=== PATIENT | male | born 1935 | race Caucasian/White ===

== ENCOUNTER 2018-01-08 15:52 | Emergency (ER) | payer OTHER, MEDICARE ==
[~2018-01-08] VITALS: Wt 96.2 kg
== END 2018-01-08 17:40 | disposition home or self-care (01) ==
LOC: ED 15:52
DX: M25.561 Pain in right knee (principal); M25.551 Pain in right hip; Z88.0 Allergy status to penicillin

== ENCOUNTER 2023-01-27 16:40 | Inpatient (IN) | payer OTHER ==
[~2023-01-27] VITALS: Ht 177.8 cm; Wt 87.3 kg
[2023-01-27 16:53] VITALS: BP 171/85
[2023-01-27 17:24] LABS: BASO % 0.5 % (0.0-1.0); EOS # 0.1 10*3/uL (0.0-0.4); EOS % 1.2 % (1.0-4.0); LYMPH # 1.6 10*3/uL (1.3-4.4); LYMPH % 24.6 % (27.0-41.0); MEAN CELL VOLUME 95.5 fl (80.0-94.0); MEAN CORPUSCULAR HGB 31.8 pg (27.0-31.0); MEAN CORPUSCULAR HGB CONC 33.3 g/dl (33.0-37.0); MONO # 0.5 10*3/uL (0.1-1.0); MONO % 8.4 % (3.0-9.0); NEUT # 4.2 10*3/uL (2.3-7.9); PLATELET COUNT AUTOMATED 146 10*3/uL (130-400); RED CELL DISTRI WIDTH 13.5 % (0-14.5); WHITE BLOOD COUNT 6.4 10*3/uL (4.8-10.8)
[2023-01-27 17:26] LABS: VENOUS PH 7.513 (7.37-7.45)
[2023-01-27 17:30] VITALS: BP 141/60
[2023-01-27 17:34] LABS: ACT PARTIAL THROMBO TIME 26.4 SECONDS (20.0-32.1); INTERNATIONAL NORM RATIO 1.1 (2.0-3.5)
[2023-01-27 17:38] LABS: BILIRUBIN Negative (Negative); BLOOD Negative (Negative); CLARITY Clear (Clear); COLOR Yellow (Yellow); GLUCOSE 3+ (Negative); KETONE Negative (Negative); LEUKO ESTERASE Negative (Negative); NITRITE Negative (Negative); SPECIFIC GRAVITY >= 1.030 (1.001-1.030); UROBILINOGEN 0.2 E.U./dl (0.0-1.0)
[2023-01-27 17:49] LABS: POTASSIUM 4.3 mmol/L (3.4-5.1); TOTAL PROTEIN 6.1 gm/dL (6.0-8.0)
[2023-01-27 17:50] LABS: BACTERIA TRACE; EPITHELIAL CELLS 0-2; RBC 0-2 rbc/hpf (0-2); WBC 0-2 wbc/hpf (0-5)
[2023-01-27] MEDS ORDERED: ATORVASTATIN CA20 M1 PO (17:55)
[2023-01-27] MEDS ORDERED: JARDIANCE25 MG PO (17:56)
[2023-01-27] MEDS ORDERED: TAMSULOSIN HCL0.4 MG PO (17:57)
[2023-01-27] MEDS ORDERED: LATANOPROST2.5 ML OP (17:57)
[2023-01-27] MEDS ORDERED: METFORMIN HCL500 M2 PO (17:58)
[2023-01-27] MEDS ORDERED: NEURONTIN100 MG PO (17:59)
[2023-01-27 18:43] VITALS: BP 161/90
[2023-01-27 20:00] VITALS: BP 160/87
[2023-01-28 02:19] VITALS: BP 125/70
[2023-01-28 06:16] LABS: ALKALINE PHOSPHATASE 79 U/L (46-116); BUN 11 mg/dl (9-23); CHLORIDE 107 mmol/L (98-107); CHOLESTEROL 150 mg/dL (<200); FREE T4 1.18 ng/dl (0.89-1.76); LDL CHOLESTEROL 67 mg/dL (9-159); POTASSIUM 3.9 mmol/L (3.4-5.1); SGPT/ALT 19 U/L (10-49); THYROID STIM HORMONE (HS) 5.995 uIU/ml (0.550-4.780); TOTAL PROTEIN 6.4 gm/dL (6.0-8.0); TRIGLYCERIDES 193 mg/dl (<150)
[2023-01-28 06:24] LABS: BASO % 0.5 % (0.0-1.0); EOS # 0.1 10*3/uL (0.0-0.4); EOS % 1.9 % (1.0-4.0); HEMATOCRIT 43.2 % (42.0-52.0); LYMPH # 1.6 10*3/uL (1.3-4.4); LYMPH % 24.3 % (27.0-41.0); MEAN CELL VOLUME 94.9 fl (80.0-94.0); MEAN CORPUSCULAR HGB 31.6 pg (27.0-31.0); MEAN CORPUSCULAR HGB CONC 33.3 g/dl (33.0-37.0); MONO # 0.5 10*3/uL (0.1-1.0); MONO % 8.5 % (3.0-9.0); NEUT # 4.1 10*3/uL (2.3-7.9); NEUT % 64.5 % (47.0-73.0); PLATELET COUNT AUTOMATED 153 10*3/uL (130-400); RED BLOOD COUNT 4.55 10*6/uL (4.50-5.90); RED CELL DISTRI WIDTH 13.5 % (0-14.5); WHITE BLOOD COUNT 6.4 10*3/uL (4.8-10.8)
[2023-01-28 07:41] LABS: VITAMIN D, 25-HYDROXY 39.9 ng/mL (30-100)
[2023-01-28 08:00] VITALS: BP 141/83
[2023-01-28 12:00] VITALS: BP 120/66
[2023-01-28 16:00] VITALS: BP 124/60
[2023-01-28 20:00] VITALS: BP 138/70; BP 174/74
[2023-01-29] VITALS: BP 131/74
[2023-01-29 05:25] LABS: BUN 8 mg/dl (9-23); CHLORIDE 107 mmol/L (98-107); POTASSIUM 4.4 mmol/L (3.4-5.1)
[2023-01-29 06:17] LABS: BASO % 0.3 % (0.0-1.0); EOS # 0.2 10*3/uL (0.0-0.4); EOS % 2.5 % (1.0-4.0); HEMATOCRIT 44.4 % (42.0-52.0); LYMPH # 1.7 10*3/uL (1.3-4.4); LYMPH % 25.7 % (27.0-41.0); MEAN CELL VOLUME 97.4 fl (80.0-94.0); MEAN CORPUSCULAR HGB CONC 32.9 g/dl (33.0-37.0); MONO # 0.7 10*3/uL (0.1-1.0); MONO % 9.8 % (3.0-9.0); NEUT # 4.1 10*3/uL (2.3-7.9); NEUT % 61.4 % (47.0-73.0); PLATELET COUNT AUTOMATED 143 10*3/uL (130-400); RED BLOOD COUNT 4.56 10*6/uL (4.50-5.90); RED CELL DISTRI WIDTH 13.8 % (0-14.5); WHITE BLOOD COUNT 6.7 10*3/uL (4.8-10.8)
[2023-01-29 08:00] VITALS: BP 126/74
[2023-01-29] MEDS ORDERED: HUMALOG100 UNIT/2 SC (13:30)
[2023-01-29] MEDS ORDERED: GLUCTESTSTRIP (13:30)
[2023-01-29] MEDS ORDERED: LANTUS SOL100 UNIT/1 SC (13:30)
[2023-01-29] MEDS ORDERED: BD ULTRA-FINE1 EAC3 MC (13:30)
[2023-01-29] MEDS ORDERED: TEST STRIPS1 EACH MC (13:30)
== END 2023-01-29 16:30 | disposition home health service (06) | DRG 637 ==
LOC: ED 16:40 → EDHOLD 01-28 00:45 → 5E 01-28 00:45
PROVIDERS: Internal Medicine; Student in an Organized Health Care Education/Training Program; ADMIT Internal Medicine; ATTEND Internal Medicine
DX: E11.00 Type 2 diabetes mellitus with hyperosmolarity without nonketotic hyperglycemic-hyperosmolar coma (NKHHC) (principal); G93.41 Metabolic encephalopathy; E87.20 Acidosis, unspecified; J98.11 Atelectasis; N42.9 Disorder of prostate, unspecified; I10 Essential (primary) hypertension; R00.1 Bradycardia, unspecified; M25.561 Pain in right knee; R41.9 Unspecified symptoms and signs involving cognitive functions and awareness; M25.551 Pain in right hip; G89.29 Other chronic pain; E78.5 Hyperlipidemia, unspecified; K57.30 Diverticulosis of large intestine without perforation or abscess without bleeding; Z88.0 Allergy status to penicillin; Z88.8 Allergy status to other drugs, medicaments and biological substances; Z82.49 Family history of ischemic heart disease and other diseases of the circulatory system; Z79.899 Other long term (current) drug therapy